=== PATIENT | male | born 1955 | race Caucasian/White ===

== ENCOUNTER 2019-02-18 16:34 | Emergency (ER) | payer OTHER, MEDICARE, SELFPAY ==
[2019-02-18 16:35] VITALS: BP 123/64; PULSE 75; RESP 13; TEMP 36.7; O2SAT 97; BMI 25.0
[2019-02-18 16:52] VITALS: BP 139/69; PULSE 74; RESP 12; O2SAT 93
--- NOTE | 2019-02-18 17:08 | ED.DCSUM_ITS ---
- ER Visit Summary Date of Service: 02/18/19 Chief Complaint: Transient hypotension resolved History of Present Illness: The patient is a 63 M history of hypertension, TIA, anemia and end-stage renal disease for which she is dialysis. He is dialyzed Thursday. States earlier today his blood pressure was elevated approximately 190/100 at home. Took 1 of his blood pressure medications. Then he went to dialysis. Prior to starting dialysis his pressure he said was in the 80s systolically. They just felt weak all over. Other than that has not been ill. He denies any nausea, vomiting or diarrhea. He does not make urine. No fever or cough. No chest pain, abdominal pain or shortness of breath. States that his dialysis and also gave him a liter of fluid to combat his hypotension tonight feels fine. They sent him down to be evaluated. He denies any complaints. Physical Examination: Well-appearing male. Vital signs are stable and afebrile. His initial pressure on triage is 123/64 currently is 139/69. He is afebrile. He is in no distress. HEENT exam unremarkable. Neck nontender. Lungs clear to auscultation bilaterally. Heart regular rhythm no murmur. Rate about 75. Abdomen soft and nontender normal bowel sounds no peritoneal signs. Patient moving all 4 extremities. Neurovascular intact. Calves are nontender without edema. Left upper arm has a dialysis fistula with good thrill. Neurologically is awake alert with no focal motor deficits. Back is nontender. Skin is unremarkable. Test Results: Deferred Emergency Department Course and Treatment: Patient clinically looks good. He has no complaints. He was hypotension after a blood pressure medication. After dialysis he was treated with fluids and currently feels fine and has normal vital signs and normal exam. I discussed with he and his and they are comfortable with no work-up being done. Treatment Plan: Return if feeling worse. Monitor his blood pressure at home. Disposition: Discharge Impression: Transient hypotension resolved History of end-stage renal disease dialyzed today. This note was generated with [employer] dictation software. It may contain incorrect words, spelling, and punctuation that were not noted in review of the chart prior to signing ED Disposition - Plan for ED Patient: Referrals: Renata Haley MD [Primary Care Provider] -
--- NOTE | 2019-02-18 17:08 | ED.DEP ---
ED Disposition - Plan for ED Patient: Disposition: Home or Assisted Living Instructions: ED Hypotension All Causes Referrals: Renata Haley MD [Primary Care Provider] - As Needed Additional Instructions: Return to the ER feeling worse. Check your blood pressures at home this weekend to ensure it is not too low. Return to ER if you are feeling worse.
== END 2019-02-18 17:24 | disposition home or self-care (01) ==
PROVIDERS: Emergency Provider Emergency Medicine; Family Provider Internal Medicine; PCP Internal Medicine
DX: I95.9 Hypotension, unspecified (principal); I12.0 Hypertensive chronic kidney disease with stage 5 chronic kidney disease or end stage renal disease; N18.6 End stage renal disease; D63.1 Anemia in chronic kidney disease; Z99.2 Dependence on renal dialysis; Z86.73 Personal history of transient ischemic attack (TIA), and cerebral infarction without residual deficits; Z79.82 Long term (current) use of aspirin; Z79.899 Other long term (current) drug therapy
CPT/HCPCS: 99282

== ENCOUNTER 2020-03-30 12:13 | Emergency (ER) | payer OTHER, MEDICARE, SELFPAY ==
[2020-03-30 12:15] VITALS: BP 172/78; BP 180/82; PULSE 70; PULSE 74; RESP 18; TEMP 36.8; O2SAT 95; O2SAT 96; BMI 24.4
[2020-03-30 12:21] VITALS: O2SAT 95
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
[2020-03-30 16:19] VITALS: RESP 18
== END 2020-03-30 16:20 | disposition home or self-care (01) ==
PROVIDERS: Emergency Provider Emergency Medicine; PCP Internal Medicine
DX: S62.306A Unspecified fracture of fifth metacarpal bone, right hand, initial encounter for closed fracture (principal); S62.307A Unspecified fracture of fifth metacarpal bone, left hand, initial encounter for closed fracture; S20.211A Contusion of right front wall of thorax, initial encounter; N18.6 End stage renal disease; Z99.2 Dependence on renal dialysis; Z94.83 Pancreas transplant status; V59.49XA Driver of pick-up truck or van injured in collision with other motor vehicles in traffic accident, initial encounter; Y93.I9 Activity, other involving external motion; Y92.410 Unspecified street and highway as the place of occurrence of the external cause; Y99.8 Other external cause status
CPT/HCPCS: 29125; 71101; 73130; 99284

== ENCOUNTER 2020-04-01 09:31 | Emergency (ER) | payer MEDICARE, OTHER, SELFPAY ==
[2020-04-01 09:32] VITALS: BP 147/62; PULSE 71; RESP 17; TEMP 36.7; O2SAT 94; BMI 24.4
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
[2020-04-01] MEDS: Morphine 4 MG/ML Syringe IV (10:14)
[2020-04-01] MEDS: Ondansetron 4 MG/2 ML Vial IV (10:14)
[2020-04-01 10:49] LABS: Absolute Neutrophil Count 6.7 X10^3/uL (2.0-7.7); Basophil# 0.02 X10^3/uL; Basophil% 0.2 % (0-1); Eosinophil# 0.21 X10^3/uL; Eosinophils% 2.3 % (0-5); Hematocrit 34.2 % (40-54); Hemoglobin 10.9 g/dL (13.0-16.5); Lymphocyte % 13.1 % (19-41); Mean Corp Hgb Conc 31.9 g/dL (32-36); Mean Corpuscular Hgb 31.3 pg (27.0-32.0); Mean Corpuscular Volume 98.3 fL (80-94); Mean Platelet Vol. 10.4 fl (6.2-12.0); Monocyte# 1.03 X10^3/uL; Monocyte% 11.3 % (0-10); NRBC Flagged by Analyzer 0 % (0-5); Neutrophil # 6.65 X10^3/uL (2.7-7.7); Neutrophil % 72.8 % (47-70); Platelet Count 120 K/mm3 (150-450); RBC Distribution Width CV 15.4 % (11.6-14.6); RBC Distribution Width SD 54.7 fl (35.1-43.9); Red Blood Count 3.48 M/mm3 (4.6-6.2); White Blood Count 9.1 K/mm3 (4.4-11.0)
[2020-04-01 10:56] LABS: International Normalized Ratio 1.1; Prothrombin Time (Protime)PT. 13.7 SECONDS (11.7-14.9)
[2020-04-01 11:11] LABS: ALB/GLOB Ratio 0.7 RATIO (0.9-2.4); AST(SGOT) 12 U/L (15-37); Alanine Aminotransfer ALT/SGPT 14 U/L (16-61); Albumin, Serum 2.9 g/dL (3.2-5.0); Alkaline Phosphatase 117 U/L (45-117); Anion Gap 8 (5-15); BUN 49 mg/dL (7-18); BUN/Creat Ratio 6.4 RATIO (10-20); Chloride 96 mmol/L (98-107); Creatinine, Serum 7.63 mg/dL (0.70-1.30); EST Glomerular Filtration Rate 8 mL/min (>60); Est Glom Filt Rate - Afr Amer 9 mL/min (>60); Estimated Creatinine Clearance 10.74 ml/min; Glucose 98 mg/dL (74-106); Lipase 64 U/L (73-393); Potassium 3.7 mmol/L (3.5-5.1); Protein, Total 6.9 g/dL (6.4-8.2); Sodium Level 137 mmol/L (136-145)
[2020-04-01 11:27] VITALS: BP 160/73; PULSE 68; RESP 15
[2020-04-01] MEDS: oxyCODONE 5 MG Tablet PO (12:45)
[2020-04-01 12:54] VITALS: BP 159/71; PULSE 74; RESP 16; O2SAT 95
== END 2020-04-01 13:02 | disposition home or self-care (01) ==
PROVIDERS: Emergency Provider Physician Assistant Medical; PCP Internal Medicine
DX: S20.211A Contusion of right front wall of thorax, initial encounter (principal); V89.2XXA Person injured in unspecified motor-vehicle accident, traffic, initial encounter; Y93.9 Activity, unspecified; Y92.9 Unspecified place or not applicable; N18.6 End stage renal disease; Z99.2 Dependence on renal dialysis; Z94.0 Kidney transplant status; Z94.83 Pancreas transplant status; Z79.899 Other long term (current) drug therapy
CPT/HCPCS: 36415; 71250; 74176; 80053; 83690; 85025; 85610; 96374; 96375; 99285; A4216; J2405